=== PATIENT | female | born 1945 | race Two or more races ===

== ENCOUNTER 2021-09-21 08:15 | Inpatient (IN) | payer OTHER ==
[~2021-09-21] VITALS: Ht 152.4 cm; Wt 89.8 kg
[2021-09-21] MEDS ORDERED: METFORMIN HCL500 M3 PO (10:41)
[2021-09-21] MEDS ORDERED: GLIPIZIDE XL5 MG PO (10:41)
[2021-09-21] MEDS ORDERED: AVAPRO300 MG PO (11:29)
[2021-09-27] MEDS ORDERED: INTEGRA PLUS C1 EACH PO (06:26)
[2021-09-27] MEDS ORDERED: ELIQUIS2.5 MG PO (06:26)
[2021-09-27] MEDS ORDERED: OXYC1TAB9 PO (06:26)
[2021-09-27] MEDS ORDERED: BACTRIM DS TAB1 EACH PO (06:26)
== END 2021-09-27 17:38 | DRG 470 ==
LOC: O/R 09-25 06:00 → SURH 09-25 06:00
PROVIDERS: ADMIT Orthopaedic Surgery Sports Medicine; ATTEND Orthopaedic Surgery Sports Medicine
PROC: 0SRC0J9 Replacement of Right Knee Joint with Synthetic Substitute, Cemented, Open Approach (ICD-10-PCS; principal; 2021-09-25 10:45)
DX: M17.11 Unilateral primary osteoarthritis, right knee (principal); I10 Essential (primary) hypertension; E11.9 Type 2 diabetes mellitus without complications; Z79.84 Long term (current) use of oral hypoglycemic drugs; Z20.822 Contact with and (suspected) exposure to COVID-19